=== PATIENT | female | born 1990 | race Caucasian/White ===

== ENCOUNTER 2017-08-21 17:54 | Emergency (ER) | payer BC ==
[~2017-08-21] VITALS: Ht 157.5 cm; Wt 99.8 kg
[2017-08-21 18:10] VITALS: Ht 157.5 cm; Wt 99.8 kg
[2017-08-21 19:54] LABS: microscopic required? NO
[2017-08-21 20:43] LABS: urine erythrocyte NEGATIVE (NEGATIVE)
[2017-08-21 20:45] LABS: CALCIUM 8.5 mg/dL (8.5-10.1); CARBON DIOXIDE 27.6 mmol/L (21-32); CHLORIDE SERUM 103 mmol/L (98-107); CREATININE SERUM 0.9 mg/dL (0.6-1.0); GFR1 > 60 mL/min; GLUCOSE SERUM 95 mg/dL (74-106); POTASSIUM SERUM 3.7 mmol/L (3.5-5.1); SODIUM SERUM 140 mmol/L (136-145)
[2017-08-21 20:48] LABS: BASOPHIL % 0.2 % (0-2); PLATELET COUNT 312 x10^3mcL (130-400)
[2017-08-21 20:49] LABS: ALBUMIN 3.4 g/dL (3.4-5.0); ALT/SGPT 31 U/L (14-59); AMYLASE 66 U/L (25-115); AST/SGOT 18 U/L (15-37); BILIRUBIN TOTAL 0.4 mg/dL (0.20-1.00); LIPASE 264 IU/L (73-393); TOTAL PROTEIN, SERUM 7.3 g/dL (6.4-8.2)
[2017-08-21 21:02] LABS: ALKALINE PHOSPHATASE 100 U/L (46-116)
[2017-08-21 22:48] VITALS: BP 131/82
== END 2017-08-21 22:48 | disposition home or self-care (01) ==
LOC: ED 17:54
PROVIDERS: Emergency Medicine
DX: K59.00 Constipation, unspecified (principal); E66.9 Obesity, unspecified
CPT/HCPCS: 36415; 83880